=== PATIENT | female | born 1990 | race Caucasian/White ===

== ENCOUNTER 2020-12-31 07:18 | Outpatient (CLI) | payer OTHER | END 2020-12-31 07:23 | disposition home or self-care (01) | LOC: LAB 07:18 | DX: Z3A.21 21 weeks gestation of pregnancy (principal) ==

== ENCOUNTER → 2021-01-14 07:04 | Outpatient (CLI) | payer OTHER | END | disposition home or self-care (01) | LOC: LAB 07:04 | PROVIDERS: ATTEND Obstetrics & Gynecology | DX: O30.002 Twin pregnancy, unspecified number of placenta and unspecified number of amniotic sacs, second trimester (principal); Z3A.24 24 weeks gestation of pregnancy ==